=== PATIENT | female | born 1955 | race African-American/Black ===

== ENCOUNTER 2016-04-04 13:02 | Emergency (ER) | payer OTHER ==
[2016-04-04 14:12] LABS: Anion Gap 14 mmol/L (10-20); BUN (Urea Nitrogen) 49 mg/dL (9.8-20.1); Calc. Creatinine Clearance 0 mL/min (70-130); Calcium 8.7 mg/dL (7.8-10.44); Carbon Dioxide 21 mmol/L (23-31); Chloride 113 mmol/L (98-107); Estimated GFR-MDRD 13
--- NOTE | 2016-04-04 17:56 | ERRECORD ---
[facility] EMERGENCY RECORD ADMIN (13:07 EPIE) MERGE: Ambulance Tue Apr 04, 2016 12:47. HPI GENERAL (15:13 MPUR) CHIEF COMPLAINT: Patient presents for evaluation of Hyperkalemia. HISTORIAN: Additional history obtained from EMS, 60 Y.O. with renal insufficiency at Dr. Scruggs's office today who was found to have an elevated K. She was sent here for reeval. Bedridden since a CVA 6 + yrs ago she also has some problems with thinking as well. Pt is asymptomatic, has no pains and no complaints. ROS (15:17 MPUR) CONSTITUTIONAL: Historian denies chills, Historian denies fever, Historian denies malaise, Historian denies weakness. EYES: Historian denies eye redness, Historian denies eye discharge. ENT: Historian denies epistaxis, Historian denies otalgia, Historian denies rhinorrhea, Historian denies sore throat. CARDIOVASCULAR: Historian denies chest pain. RESPIRATORY: Historian denies cough, Historian denies shortness of breath. GI: Historian denies abdominal pain, Historian denies diarrhea, Historian denies nausea, Historian denies vomiting. GENITOURINARY FEMALE: Historian denies dysuria, Historian denies frequency, Historian denies hematuria, Historian denies urgency, Historian denies vaginal bleeding, Historian denies vaginal discharge. MUSCULOSKELETAL: Historian denies neck pain. SKIN: Historian denies cellulitis, Historian denies rash. NEUROLOGIC: Historian denies dizziness, Historian denies headache. ENDOCRINE: Historian denies polydipsia, Historian denies polyuria. PAST MEDICAL HISTORY (13:17 EPIE) MEDICAL HISTORY: Notes: CVA 2005, 2008, Notes: HTN, DMII, MORBID OBESITY, CAD, CHF, Flu vaccine up to date, Tetanus not up to date, Pneumococcal vaccine up to date. FEMALE SURGICAL HISTORY: Patient has no surgical history. PSYCHIATRIC HISTORY: Psychiatric history includes, depression,. SOCIAL HISTORY: Patient denies alcohol use, Patient denies drug use, Patient has no smoking history. KNOWN ALLERGIES No Known Drug Allergies &a-1R&a+25V*p+0X*f5229E*c202B*c15G*c2P*p-0X&a-25V&a+1R Name: Ange Jacobs : 1955 F60 MedRec: [id number] AcctNum: [id number] Prepared: SunApr 05, 2016 00:35 by Interface Page 1 of 4 pMD [facility] EMERGENCY RECORD CURRENT MEDICATIONS ferrous sulfate: TABLET : Strength - 325 mg (65 mg iron) : ORAL Patient Dose: 1 tab(s) Oral once a day. (15:29 EPIE) Lipitor: TABLET : Strength - 40 mg : ORAL Patient Dose: 40 mg Oral once a day. (15:29 EPIE) aspirin: TABLET : Strength - 81 mg : ORAL Patient Dose: 81 mg Oral once a day. (15:29 EPIE) carvedilol: TABLET : Strength - 12.5 mg : ORAL Patient Dose: 12.5 mg Oral 2 times a day. (15:30 EPIE) NIFEdipine: TABLET, EXTENDED RELEASE : Strength - 60 mg : ORAL Patient Dose: 60 mg Oral once a day. (15:30 EPIE) Wellbutrin: TABLET : Strength - 100 mg : ORAL Patient Dose: 100 mg Oral 2 times a day. (15:30 EPIE) VITAL SIGNS VITAL SIGNS: Pulse: 77, Resp: 22 (Non-Labored), Temp: 97.7 (Oral), Pain: 0, O2 sat: 100 on Room Air, Time: 04/04/2016 13:04. (13:04 EPIE) BP: 163/80, Pulse: 78, Resp: 22 (Non-Labored), Pain: 0, O2 sat: 100 on Room Air, Time: 04/04/2016 13:17. (13:17 EPIE) BP: 158/82, Pulse: 71, Resp: 22 (Non-Labored), Pain: 0, O2 sat: 100 on Room Air, Time: 04/04/2016 14:00. (14:00 EPIE) BP: 150/90, Pulse: 65, Resp: 22 (Non-Labored), Pain: 0, O2 sat: 100 on Room Air, Time: 04/04/2016 14:30. (14:30 EPIE) BP: 140/80, Pulse: 72, Resp: 22, Pain: 0, O2 sat: 100 on Room Air, Time: 04/04/2016 15:00. (15:00 EPIE) BP: 176/91, Pulse: 74, Resp: 22 (Non-Labored), Pain: 0, O2 sat: 100 on Room Air, Time: 04/04/2016 15:45. (15:45 EPIE) BP: 199/90, Pulse: 74, Resp: 22 (Non-Labored), Temp: 98.0 (Oral), Pain: 0, O2 sat: 100 on Room Air, Time: 04/04/2016 17:15. (17:15 EPIE) PHYSICAL EXAM (15:20 MPUR) CONSTITUTIONAL: Vital signs reviewed, Patient alert and oriented to person, place. Morbidly obese, complacent, pleasant mood. HEAD: Head exam included findings of head atraumatic, normocephalic. EYES: Pupils equally round and reactive to light, Extraocular muscles intact, Conjunctiva normal. ENT: Ear exam normal, Nose exam normal, Pharynx exam normal. NECK: Neck exam included findings of normal range of motion, Trachea midline, no jugular venous distention. &a-1R&a+25V*p+0X*x7547F*c202B*c15G*c2P*p-0X&a-25V&a+1R Name: Ange Jacobs : 1955 F60 MedRec: [id number] AcctNum: [id number] Prepared: SunApr 05, 2016 00:35 by Interface Page 2 of 4 pMD [facility] EMERGENCY RECORD RESPIRATORY CHEST: Respiratory exam included findings of no respiratory distress, Breath sounds clear, No wheezing, No rales, No rhonchi. CARDIOVASCULAR: Cardiovascular exam included findings of heart rate regular rate and rhythm, Heart sounds normal, normal S1, normal S2, no murmurs. ABDOMEN FEMALE: Abdominal exam included findings of morbidly obese, nontender, Bowel sounds normal, Liver normal, Spleen normal, no distension, no mass, no pulsatile masses, no peritoneal signs. BACK: Back exam deferred. UPPER EXTREMITY: Motor strength normal, Sensation intact, Radial pulse normal. LOWER EXTREMITY: Lower extremity exam included findings of inspection normal, Motor strength weak, Posterior tibial pulse normal. NEURO: Speech normal. SKIN: Skin exam included findings of skin warm, dry. EKG INTERPRETATION (16:50 MPUR) 12 LEAD EKG INTERPRETATION: 12 lead EKG interpreted by Emergency Department Physician at time of study, 12 lead EKG shows normal sinus rhythm, Rate (beats per minute): 62, with no ectopics, Interpretation:, Conduction with, first degree AV block, ST segments normal, T waves normal, [place] normal, Clinical impression:, myocardial injury, old. MEDICATION ADMINISTRATION SUMMARY Drug Name: Kayexalate, Dose Ordered: 15 g, Route: Oral, Status: Given, Time: 15:37 04/04/2016, Detailed record available in Medication Service section. DOCTOR NOTES D/W: Discussed this case with Dr. Scruggs, the primary care physician, Discussed K+. He wants her transferred for admission for renal workup & prep for dialysis. (14:24 MPUR) Discussed this case with Dr. Browning at the [facility], the line construction supervisor physician, Accepted for transfer. (16:54 MPUR) PROBLEM LIST No recorded problems DIAGNOSIS (15:49 MPUR) FINAL: PRIMARY: Renal Failure, ADDITIONAL: Hyperkalemia, morbid obesity. PRESCRIPTION No recorded prescriptions &a-1R&a+25V*p+0X*o9570O*c202B*c15G*c2P*p-0X&a-25V&a+1R Name: Ange Jacobs : 1955 F60 MedRec: [id number] AcctNum: [id number] Prepared: SunApr 05, 2016 00:35 by Interface Page 3 of 4 D [facility] EMERGENCY RECORD DISPOSITION PATIENT: Disposition Type: Transfer, Disposition: [facility]. (15:49 MPUR) Disposition: (none). (16:40 EPIE) Disposition: [facility]. (16:56 MPUR) Patient left the department. (17:51 JPAR) Zaidi: EPIE=JASWINDER Yarbrough, Alma JPAR=JASWINDER Falcon, Sergio MPUR=MD Jimmie, Toño &a-1R&a+25V*p+0X*f8177E*c202B*c15G*c2P*p-0X&a-25V&a+1R Name: Ange Jacobs : 1955 F60 MedRec: [id number] AcctNum: [id number] Prepared: Wed Apr 05, 2016 00:35 by Interface Page 4 of 4 pMD MTDD
--- NOTE | 2016-04-04 18:02 | PICIS ---
[facility] EMERGENCY RECORD COMMUNICATIONS (14:30 JPAR) COMMUNICATIONS: Notes: Consult with Nephrology called transfer center. ADMIN MERGE: Ambulance SunApr 04, 2016 12:47. (13:07 EPIE) TRIAGE (SunApr 04, 2016 13:06 EPIE) TRIAGE NOTES: Pt states she is coming to the ED for elevated potassium. She had renal failure one month ago. Pt has no symptoms at this time. (SunApr 04, 2016 13:06 EPIE) PATIENT: NAME: Ange Jacobs, AGE: 60, GENDER: female, : [place] 1955, TIME OF GREET: SunApr 04, 2016 13:03, PREFERRED LANGUAGE: Uruguayan, ETHNICITY: Not or , ECODE BILLING MAP: [facility], SSN: [id number], Zip Code: [address], KG WEIGHT: 168.28, PHONE: , , , PERSON ID: [id number], PCP: MD Delacruz Katherine. (SunApr 04, 2016 13:06 EPIE) COMPLAINT: ABNORMAL LABS. (SunApr 04, 2016 13:06 EPIE) ADMISSION: URGENCY: 3 Urgent, ADMISSION SOURCE: Home, TRANSPORT: CAR, BED: TRIAGE. (SunApr 04, 2016 13:06 EPIE) TRIAGE SCREENING: Patient denies suicidal ideation, Patient denies presence of domestic violence. (13:17 EPIE) TREATMENTS IN PROGRESS: Treatments given Prehospital: NONE. (13:17 EPIE) PROVIDERS: TRIAGE NURSE: Alma Yarbrough RN. (SunApr 04, 2016 13:06 EPIE) VITAL SIGNS: Pulse 77, Resp 22, (Non-Labored), Temp 97.7, (Oral), Pain 0, O2 Sat 100, on Room Air, Time 04/04/2016 13:04. (13:04 EPIE) KNOWN ALLERGIES No Known Drug Allergies CURRENT MEDICATIONS ferrous sulfate: TABLET : Strength - 325 mg (65 mg iron) : ORAL Patient Dose: 1 tab(s) Oral once a day. (15:29 EPIE) Lipitor: TABLET : Strength - 40 mg : ORAL Patient Dose: 40 mg Oral once a day. (15:29 EPIE) aspirin: TABLET : Strength - 81 mg : ORAL Patient Dose: 81 mg Oral once a day. (15:29 EPIE) carvedilol: TABLET : Strength - 12.5 mg : ORAL Patient Dose: 12.5 mg Oral 2 times a day. (15:30 EPIE) NIFEdipine: TABLET, EXTENDED RELEASE : Strength - 60 mg : ORAL Patient Dose: 60 mg Oral once a day. (15:30 EPIE) Wellbutrin: &a-1R&a+25V*p+0X*q2310F*c202B*c15G*c2P*p-0X&a-25V&a+1R Name: Ange Jacobs : 1955 F60 MedRec: [id number] AcctNum: [id number] Prepared: SunApr 05, 2016 00:41 by Interface Page 1 of 8 pMD [facility] EMERGENCY RECORD TABLET : Strength - 100 mg : ORAL Patient Dose: 100 mg Oral 2 times a day. (15:30 EPIE) VITAL SIGNS VITAL SIGNS: Pulse: 77, Resp: 22 (Non-Labored), Temp: 97.7 (Oral), Pain: 0, O2 sat: 100 on Room Air, Time: 04/04/2016 13:04. (13:04 EPIE) BP: 163/80, Pulse: 78, Resp: 22 (Non-Labored), Pain: 0, O2 sat: 100 on Room Air, Time: 04/04/2016 13:17. (13:17 EPIE) BP: 158/82, Pulse: 71, Resp: 22 (Non-Labored), Pain: 0, O2 sat: 100 on Room Air, Time: 04/04/2016 14:00. (14:00 EPIE) BP: 150/90, Pulse: 65, Resp: 22 (Non-Labored), Pain: 0, O2 sat: 100 on Room Air, Time: 04/04/2016 14:30. (14:30 EPIE) BP: 140/80, Pulse: 72, Resp: 22, Pain: 0, O2 sat: 100 on Room Air, Time: 04/04/2016 15:00. (15:00 EPIE) BP: 176/91, Pulse: 74, Resp: 22 (Non-Labored), Pain: 0, O2 sat: 100 on Room Air, Time: 04/04/2016 15:45. (15:45 EPIE) BP: 199/90, Pulse: 74, Resp: 22 (Non-Labored), Temp: 98.0 (Oral), Pain: 0, O2 sat: 100 on Room Air, Time: 04/04/2016 17:15. (17:15 EPIE) NURSING ASSESSMENT: FALL RISK (15:10 EPIE) FALL RISK: Fall risk assessment findings include: History of falls (5), Bed rest greater than 2 days (5), No use of level of consciousness altering agents with mentation or cognitive changes (0), No change in blood pressure (0), No sensory deficits (0), Impaired mobility (3), No neurologic diagnosis (0), Elimination problems (3), No confusion (0), Total score 16, Fall risk. NURSING ASSESSMENT: HEAD-TO-TOE CONSTITUTIONAL: Patient arrives, via [facility], Unsteady gait, Lift to cart, History obtained from patient, Patient appears comfortable, Patient cooperative, Patient alert, Oriented to person, place and time, Skin warm, Skin dry, Skin normal in color, Mucous membranes pink, Mucous membranes moist, Patient is well-groomed, Pt states she is coming to the ED for elevated potassium. She had renal failure one month ago. Pt has no symptoms at this time. (14:18 EPIE) PAIN: Patient rates pain as 0 out of 10. (14:18 EPIE) SKIN: Skin assessment findings include skin warm, Skin dry, Skin normal in color, Inspection findings include: No pressure ulcer to the shoulder, Inspection findings include no pressure ulcer to the elbow, Inspection findings include no pressure ulcers to the hip, Inspection findings include no pressure ulcer to the sacrum, Inspection findings include no pressure ulcer to the heel, Inspection findings include no pressure ulcer, Inspection findings include no pressure ulcer, Notes: Pt is morbidly obese. (15:07 EPIE) NEURO: Pupils equally round and reactive to light, Able to close eyes, Face symmetrical, Speech normal. (14:18 EPIE) RESPIRATORY/CHEST: Breath sounds clear, Respiratory assessment &a-1R&a+25V*p+0X*i0090Q*c202B*c15G*c2P*p-0X&a-25V&a+1R Name: Ange Jacobs : 1955 F60 MedRec: [id number] AcctNum: [id number] Prepared: SunApr 05, 2016 00:41 by Interface Page 2 of 8 pMD [facility] EMERGENCY RECORD findings include respiratory effort easy, Respirations regular, Conversing normally, Neck and chest exam findings include trachea midline, Chest expansion equal, Chest movement symmetrical. (14:18 EPIE) CARDIOVASCULAR: Heart sounds normal, S1, S2, no associated dyspnea, no associated dizziness, no associated weakness. (14:18 EPIE) ABDOMEN: Abdomen assessment findings include abdomen symmetrical, Abdomen soft, no associated nausea, no associated vomiting, no associated diarrhea. (14:18 EPIE) NURSING PROCEDURE: BEDSIDE SIRS TESTING (15:11 EPIE) SCORES: Heart Rate 55-109 (0), Temp range 96.8-101.1 (0), respiratory rate 12-24 (0), Mental Status altered: no (0), Infection or Suspected Infection: No. NURSING PROCEDURE: COMPOSITE BOND WORKER (13:06 EPIE) COMPOSITE BOND WORKER: Patient placed on threat monitoring analyst, Patient placed on non-invasive blood pressure monitor, with disposable blood pressure cuff applied, Patient placed on continuous pulse oximetry, Adult/pediatric oxisensor applied. FOLLOW-UP: After procedure, alarms set and on, After procedure, patient tolerating monitoring. NURSING PROCEDURE: EKG CHART (16:15 EPIE) EK lead EKG performed on the left chest, done by Alma SAN, first EKG. FOLLOW-UP: After procedure, EKG for interpretation given to Dr. Jimime MERIDA. NURSING PROCEDURE: IV (14:20 EPIE) PATIENT IDENITIFIER: Patient actively involved in identification process, Patient's identity verified by patient stating name, Patient's identity verified by hospital ID bracelet. IV SITE 1: IV established, to the right antecubital, using a 20 gauge catheter, in one attempt, IV site prepped with CHLOROPREP, Saline lock established, Flushed with normal saline (mls): 10, Notes: IV started by Leann SAN. FOLLOW-UP SITE 1: After procedure, no drainage at IV site, After procedure, no swelling at IV site, After procedure, no redness at IV site. NURSING PROCEDURE: NURSE NOTES NURSES NOTES: Notes: Patient resting with RR even and unlabored. No new complaints at this time. ERMD at bedside talking with patient at this time. (14:21 EPIE) Notes: Patient resting with RR even and unlabored. No new complaints at this time. Attempting to transfer to appropriate facility. Pt given sip of water for comfort. (15:11 EPIE) Notes: Patient resting with RR even and unlabored. No new complaints &a-1R&a+25V*p+0X*t6309E*c202B*c15G*c2P*p-0X&a-25V&a+1R Name: Ange Jacobs : 1955 F60 MedRec: [id number] AcctNum: [id number] Prepared: SunApr 05, 2016 00:41 by Interface Page 3 of 8 pMD [facility] EMERGENCY RECORD at this time. Awaiting room assignment from [facility]. (16:14 EPIE) Notes: [facility] declined transfer due to ERMD mentioning insurance as reason for transfer. Awaiting transfer center to find alternate facility. (16:31 EPIE) NURSING PROCEDURE: POSITIONING (15:08 EPIE) POSITIONING: Patient placed in side lying position on the left, head of bed elevated, (degrees) 45. FOLLOW-UP: After procedure, patient resting comfortably. NURSING PROCEDURE: TRANSFER (17:31 EPIE) TRANSFER: Reason for transfer need for specialized care, Diagnosis: hyperkalemia, Accepting institution: [facility], Accepting physician: Yomi, Referring physician: Jimmie, Transported by urgent ambulance, accompanied by emergency medical services personnel, Report called to receiving facility, Reg SAN, Provided opportunity to answer questions, Bed assigned er to er, Summary of Care printed, Copy of patient record prepared for receiving facility, Patient consent for transfer signed, Family member contacted. BELONGINGS: Belongings and valuables with patient upon arrival to the Emergency Department include:, Belongings and valuables with patient at time of discharge include:, Belongings remain with patient, Valuables remain with patient. ORDER DETAILS Order Name: Basic Metabolic Panel, Status: Active, Time: 13:21 04/04/2016, User: ANNA, - Ordered for: MD Samuel Marcus, - Entered by: MD Samuel Marcus - johnny Apr 04, 2016 13:21, - Quantity: 1, Order Name: EKG 12 Lead in Emergency Room, Status: Active, Time: 15:46 04/04/2016, User: ANNA, - Ordered for: MD Samuel Marcus, - Entered by: MD Samuel Marcus - Tue Apr 04, 2016 15:46, - Quantity: 1. MEDICATION ADMINISTRATION SUMMARY Drug Name: Kayexalate, Dose Ordered: 15 g, Route: Oral, Status: Given, Time: 15:37 04/04/2016, Detailed record available in Medication Service section. MEDICATION SERVICE (15:37 MPUR) Kayexalate: Order: Kayexalate (sodium polystyrene sulfonate) - Dose: 15 g : Oral Ordered by: Toño Samuel MD Entered by: Toño Samuel MD SunApr 04, 2016 14:31 , Acknowledged by: Alma Yarbrough RN SunApr 04, 2016 14:37 &a-1R&a+25V*p+0X*q8362R*c202B*c15G*c2P*p-0X&a-25V&a+1R Name: Ange Jacobs : 1955 F60 MedRec: [id number] AcctNum: [id number] Prepared: SunApr 05, 2016 00:41 by Interface Page 4 of 8 pMD [facility] EMERGENCY RECORD Documented as given by: Alma Yarbrough RN SunApr 04, 2016 15:37 Patient, Medication, Dose, Route and Time verified prior to administration. Amount given: 15g, Site: Medication administered P.O., Correct patient, time, route, dose and medication confirmed prior to administration, Patient advised of actions and side-effects prior to administration, Allergies confirmed and medications reviewed prior to administration. HPI GENERAL (15:13 MPUR) CHIEF COMPLAINT: Patient presents for evaluation of Hyperkalemia. HISTORIAN: Additional history obtained from EMS, 60 Y.O. with renal insufficiency at Dr. Scruggs's office today who was found to have an elevated K. She was sent here for reeval. Bedridden since a CVA 6 + yrs ago she also has some problems with thinking as well. Pt is asymptomatic, has no pains and no complaints. ROS (15:17 MPUR) CONSTITUTIONAL: Historian denies chills, Historian denies fever, Historian denies malaise, Historian denies weakness. EYES: Historian denies eye redness, Historian denies eye discharge. ENT: Historian denies epistaxis, Historian denies otalgia, Historian denies rhinorrhea, Historian denies sore throat. CARDIOVASCULAR: Historian denies chest pain. RESPIRATORY: Historian denies cough, Historian denies shortness of breath. GI: Historian denies abdominal pain, Historian denies diarrhea, Historian denies nausea, Historian denies vomiting. GENITOURINARY FEMALE: Historian denies dysuria, Historian denies frequency, Historian denies hematuria, Historian denies urgency, Historian denies vaginal bleeding, Historian denies vaginal discharge. MUSCULOSKELETAL: Historian denies neck pain. SKIN: Historian denies cellulitis, Historian denies rash. NEUROLOGIC: Historian denies dizziness, Historian denies headache. ENDOCRINE: Historian denies polydipsia, Historian denies polyuria. PAST MEDICAL HISTORY (13:17 EPIE) MEDICAL HISTORY: Notes: CVA 2005, 2008, Notes: HTN, DMII, MORBID OBESITY, CAD, CHF, Flu vaccine up to date, Tetanus not up to date, Pneumococcal vaccine up to date. FEMALE SURGICAL HISTORY: Patient has no surgical history. PSYCHIATRIC HISTORY: Psychiatric history includes, &a-1R&a+25V*p+0X*l5391V*c202B*c15G*c2P*p-0X&a-25V&a+1R Name: Ange Jacobs : 1955 F60 MedRec: [id number] AcctNum: [id number] Prepared: SunApr 05, 2016 00:41 by Interface Page 5 of 8 pMD [facility] EMERGENCY RECORD depression,. SOCIAL HISTORY: Patient denies alcohol use, Patient denies drug use, Patient has no smoking history. PHYSICAL EXAM (15:20 MPUR) CONSTITUTIONAL: Vital signs reviewed, Patient alert and oriented to person, place. Morbidly obese, complacent, pleasant mood. HEAD: Head exam included findings of head atraumatic, normocephalic. EYES: Pupils equally round and reactive to light, Extraocular muscles intact, Conjunctiva normal. ENT: Ear exam normal, Nose exam normal, Pharynx exam normal. NECK: Neck exam included findings of normal range of motion, Trachea midline, no jugular venous distention. RESPIRATORY CHEST: Respiratory exam included findings of no respiratory distress, Breath sounds clear, No wheezing, No rales, No rhonchi. CARDIOVASCULAR: Cardiovascular exam included findings of heart rate regular rate and rhythm, Heart sounds normal, normal S1, normal S2, no murmurs. ABDOMEN FEMALE: Abdominal exam included findings of morbidly obese, nontender, Bowel sounds normal, Liver normal, Spleen normal, no distension, no mass, no pulsatile masses, no peritoneal signs. BACK: Back exam deferred. UPPER EXTREMITY: Motor strength normal, Sensation intact, Radial pulse normal. LOWER EXTREMITY: Lower extremity exam included findings of inspection normal, Motor strength weak, Posterior tibial pulse normal. NEURO: Speech normal. SKIN: Skin exam included findings of skin warm, dry. EVENTS TRANSFER: Triage to Emergency Triage. (SunApr 04, 2016 13:06 EPIE) Emergency Triage to Emergency Room -02. (13:07 EPIE) Emergency Emergency Room -02 to Holding. (17:51 EPIE) Removed from Emergency Holding. (17:51 JPAR) EKG INTERPRETATION (16:50 MPUR) 12 LEAD EKG INTERPRETATION: 12 lead EKG interpreted by Emergency Department Physician at time of study, 12 lead EKG shows normal sinus rhythm, Rate (beats per minute): 62, with no ectopics, Interpretation:, Conduction with, first degree AV block, ST segments normal, T waves normal, [place] normal, Clinical impression:, myocardial injury, old. &a-1R&a+25V*p+0X*w2473G*c202B*c15G*c2P*p-0X&a-25V&a+1R Name: Ange Jacobs : 1955 F60 MedRec: [id number] AcctNum: [id number] Prepared: SunApr 05, 2016 00:41 by Interface Page 6 of 8 pMD [facility] EMERGENCY RECORD DOCTOR NOTES D/W: Discussed this case with Dr. Scruggs, the primary care physician, Discussed K+. He wants her transferred for admission for renal workup & prep for dialysis. (14:24 MPUR) Discussed this case with Dr. Browning at the [facility], the alterations expert physician, Accepted for transfer. (16:54 MPUR) PROBLEM LIST No recorded problems DIAGNOSIS (15:49 MPUR) FINAL: PRIMARY: Renal Failure, ADDITIONAL: Hyperkalemia, morbid obesity. DISPOSITION PATIENT: Disposition Type: Transfer, Disposition: [facility]. (15:49 MPUR) Disposition: (none). (16:40 EPIE) Disposition: [facility]. (16:56 MPUR) Patient left the department. (17:51 JPAR) PRESCRIPTION No recorded prescriptions IMAGING CONSENTS: Image captured from scanner. (17:14 EPIE) *MEMORANDUM OF TRANSFER: Image captured from scanner. (17:15 EPIE) *SUPPLY CHARGE SHEET: Image captured from scanner. (17:35 EPIE) ADMIN DIGITAL SIGNATURE: MD Samuel Marcus. (SunApr 05, 2016 00:29 MPUR) RESULTS (14:20 MPUR) LABORATORY: Basic Metabolic Panel Collection DT: SunApr 04, 2016 13:51, Sodium 142 mmol/L, Range (136-145), *Potassium 5.6 - H mmol/L, Range (3.5-5.1), *Chloride 113 - H mmol/L, Range (98-107), *Carbon Dioxide 21 - L mmol/L, Range (23-31), Anion Gap 14 mmol/L, Range (10-20), *BUN (Urea Nitrogen) 49 - H mg/dL, Range (9.8-20.1), *Creatinine 4.10 - H mg/dL, Range (0.6-1.1), Estimated GFR-MDRD 13 , Reference Range for Estimated GFR: Greater than 90, mL/min/1.73 m2 NOTE: The MDRD equation has not been validated for use, with the elderly (over 70 years of age), women, patients &a-1R&a+25V*p+0X*z2706Y*c202B*c15G*c2P*p-0X&a-25V&a+1R Name: Ange Jacobs : 1955 F60 MedRec: [id number] AcctNum: [id number] Prepared: SunApr 05, 2016 00:41 by Interface Page 7 of 8 pMD [facility] EMERGENCY RECORD with, serious comorbid condition or persons with extremes of body size, muscle, mass, or nutritional status. , Glucose 110 mg/dL, Range (80-115), Calcium 8.7 mg/dL, Range (7.8-10.44). Zaidi: SARAH=JASWINDER Yarbrough, Alma VICENTE=JASWINDER Falcon, Sergio CASTILLO=MD Jimmie, Toño &a-1R&a+25V*p+0X*o2771N*c202B*c15G*c2P*p-0X&a-25V&a+1R Name: Ange Jacobs : 1955 F60 MedRec: [id number] AcctNum: [id number] Prepared: SunApr 05, 2016 00:41 by Interface Page 8 of 8 pMD MTDD
== END 2016-04-04 17:27 | disposition short-term general hospital (02) ==
LOC: NAV ERS 13:02
DX: N19 Unspecified kidney failure (principal); E87.5 Hyperkalemia; E66.01 Morbid (severe) obesity due to excess calories; I10 Essential (primary) hypertension; E11.9 Type 2 diabetes mellitus without complications; F32.9 Major depressive disorder, single episode, unspecified
CPT/HCPCS: 80048; 93005

== ENCOUNTER 2018-04-26 11:24 | Emergency (ER) | payer OTHER | END 2018-04-26 11:40 | LOC: NAV ERS 11:24 | DX: Z04.1 Encounter for examination and observation following transport accident (principal); E11.9 Type 2 diabetes mellitus without complications; F03.90 Unspecified dementia, unspecified severity, without behavioral disturbance, psychotic disturbance, mood disturbance, and anxiety; I21.3 ST elevation (STEMI) myocardial infarction of unspecified site; I25.10 Atherosclerotic heart disease of native coronary artery without angina pectoris; F32.9 Major depressive disorder, single episode, unspecified; I11.0 Hypertensive heart disease with heart failure; I50.9 Heart failure, unspecified; E78.5 Hyperlipidemia, unspecified; Z86.73 Personal history of transient ischemic attack (TIA), and cerebral infarction without residual deficits; Z79.891 Long term (current) use of opiate analgesic; Z79.899 Other long term (current) drug therapy; W01.0XXA Fall on same level from slipping, tripping and stumbling without subsequent striking against object, initial encounter | CPT/HCPCS: 99281 ==

== ENCOUNTER 2020-10-21 08:39 | Emergency (ER) | payer MEDICARE, MEDICAID ==
[2020-10-21 09:25] LABS: ALT (SGPT) 43 U/L (8-55); AST (SGOT) 40 U/L (5-34); Albumin 3.4 g/dL (3.4-4.8); Alkaline Phosphatase 266 U/L (40-110); Anion Gap 16 mmol/L (10-20); BUN (Urea Nitrogen) 68 mg/dL (9.8-20.1); Bilirubin, Total 0.4 mg/dL (0.2-1.2); CK (CPK) 58 U/L (29-168); Calc. Creatinine Clearance 0 mL/min (70-130); Calcium 9.5 mg/dL (7.8-10.44); Carbon Dioxide 26 mmol/L (23-31); Chloride 100 mmol/L (98-107); Globulin 4.3 g/dL (2.4-3.5); Glucose 111 mg/dL (80-115); Potassium 5.2 mmol/L (3.5-5.1); Protein, Total 7.7 g/dL (5.8-8.1); Sodium 137 mmol/L (136-145)
[2020-10-21 09:28] LABS: #Eosinphils 0.1 thou/uL (0.0-0.7); #Lymphocytes 1.8 thou/uL (1.20-3.40); #Monocytes 0.7 thou/uL (0.11-0.59); #Neutrophils 3.2 thou/uL (1.40-6.50); %Basophils 0.7 % (0.0-1.0); %Eosinophils 0.9 % (0.0-10.0); %Lymphocytes 30.4 % (21.0-51.0); %Monocytes 12.5 % (0.0-10.0); %Neutrophils 55.5 % (42.0-75.0); Hemoglobin 12.6 g/dL (12.0-16.0); Mean Corpuscular HGB CONC 27.5 g/dL (32.0-36.0); Mean Corpuscular Hemoglobin 28.8 pg (27.0-31.0); Mean Platelet Volume 9.1 fL (7.4-10.4); Platelet Count 188 thou/uL (130-400); RBC Distribution Width 15.4 % (11.5-14.5); Red Blood Cell (RBC) Count 4.39 mill/uL (4.20-5.40); White Blood Cell (WBC) Count 5.8 thou/uL (4.8-10.8)
[2020-10-21 09:42] LABS: CKMB 1.5 ng/mL (0-6.6)
== END 2020-10-21 11:25 | disposition home or self-care (01) ==
LOC: NAV ERS 08:39
DX: N39.0 Urinary tract infection, site not specified (principal); E87.5 Hyperkalemia; E11.22 Type 2 diabetes mellitus with diabetic chronic kidney disease; K21.9 Gastro-esophageal reflux disease without esophagitis; I25.10 Atherosclerotic heart disease of native coronary artery without angina pectoris; I13.2 Hypertensive heart and chronic kidney disease with heart failure and with stage 5 chronic kidney disease, or end stage renal disease; I50.9 Heart failure, unspecified; N18.6 End stage renal disease; Z79.82 Long term (current) use of aspirin; Z79.899 Other long term (current) drug therapy; Z79.4 Long term (current) use of insulin; E66.01 Morbid (severe) obesity due to excess calories
CPT/HCPCS: 36415; 71045; 80053; 82550; 82553; 83605; 84484; 85025; 93005; 94760